=== PATIENT | male | born 1945 | race Caucasian/White ===

== ENCOUNTER 2022-04-21 04:10 | Day surgery (SDC) | payer OTHER ==
[2022-04-20 13:17] VITALS: BMI 22.6
[2022-04-21] MEDS ORDERED: ceFAZolin SODIUM 1 GM VIAL ONE (13:36)
[2022-04-21] MEDS ORDERED: PROPOFOL 20 ML ONE (13:36)
[2022-04-21] MEDS ORDERED: FLUCONAZOLE 200 MG/NS 100 ML IVPB ONE (13:45)
[2022-04-21] MEDS ORDERED: ceFAZolin SODIUM 1 GM VIAL IVPB ONE (13:47)
[2022-04-21] MEDS ORDERED: FLUCONAZOLE 200 MG PREMIX BAG (IN DEXTROSE) IVPB ONE (13:51)
[2022-04-21] MEDS ORDERED: DEXAMETHASONE SOD PHOSPHATE 4 MG/1 ML VIAL ONE (13:53)
[2022-04-21] MEDS ORDERED: PROMETHAZINE HCL 25 MG/1 ML VIAL IVPUSH PRN (14:25)
[2022-04-21] MEDS ORDERED: LACTATED RINGERS SOLUTION 1,000 ML IV SCH (14:30)
[2022-04-21] MEDS ORDERED: FENTANYL CITRATE/PF 50 MCG/ML VIAL ONE ×2 (14:57→15:03)
[2022-04-21 17:13] VITALS: BP 145/68; PULSE 74; TEMP 98
== END 2022-04-21 16:45 | disposition home or self-care (01) ==
LOC: JASU-SURG 04:10
PROVIDERS: ATTEND Urology
PROC: 0TP98DZ Removal of Intraluminal Device from Ureter, Via Natural or Artificial Opening Endoscopic (ICD-10-PCS; principal; 2022-04-21 14:00)
PROC: 0TP98DZ Removal of Intraluminal Device from Ureter, Via Natural or Artificial Opening Endoscopic (ICD-10-PCS; 2022-04-21 14:00)
PROC: BT14YZZ Fluoroscopy of Kidneys, Ureters and Bladder using Other Contrast (ICD-10-PCS; 2022-04-21 14:00)
DX: N20.1 Calculus of ureter (principal)
CPT/HCPCS: 76000-TC-FY; 82962; 94760